=== PATIENT | male | born 1965 | race Hispanic/Latino ===

== ENCOUNTER 2019-04-13 10:20 | Emergency (ER) | payer SELFPAY ==
[~2019-04-13] VITALS: Ht 170.2 cm; Wt 65.0 kg
[~2019-04-13 10:20] MED LIST: NAPROSYN500 MG PO; NO MEDS
[2019-04-13 10:41] LABS: HEMATOCRIT 41.5 % (39.0-50.0); HEMOGLOBIN 13.7 g/dl (14.0-18.0); IMMATURE GRANULOCYTES 0.7 % (0.0-5.0); MEAN CELL VOLUME 87.2 fL CALC (80.0-100.0); MEAN CORPUSCULAR HGB 28.8 pG CALC (26.0-32.0); NEUT# 9.29 thou/uL (1.82-7.42); RED BLOOD COUNT 4.76 mill/uL (4.70-6.10); RED CELL DISTRI WIDTH 12.5 % (11.5-15.5)
[2019-04-13 10:59] LABS: ANION GAP 14 (6-22 (CALC)); BUN 15 mg/dL (9-20); BUN/CREATININE RATIO 19 (12-20 (CALC)); CARBON DIOXIDE 25 mmol/l (22-30); CHLORIDE 104 mmol/l (95-108); CREATININE 0.8 mg/dL (0.7-1.3); GFR > 60 ML/MIN (>=60 (CALC)); GFR FOR AFR.AMER. > 60 ML/MIN (>=60 (CALC)); POTASSIUM 4.8 mmol/l (3.5-5.1); SODIUM 138 mmol/l (137-146)
[2019-04-13 12:09] VITALS: BP 150/87
== END 2019-04-13 12:09 | disposition short-term general hospital (02) | DRG 311 ==
LOC: ED 10:20
PROVIDERS: Family Medicine
DX: I20.0 Unstable angina (principal); I30.9 Acute pericarditis, unspecified; I10 Essential (primary) hypertension; E11.9 Type 2 diabetes mellitus without complications; I25.2 Old myocardial infarction; F17.200 Nicotine dependence, unspecified, uncomplicated
CPT/HCPCS: J1644

== ENCOUNTER 2019-11-13 | Emergency (ER) | payer SELFPAY ==
[2019-11-13] MEDS ORDERED: PLAVIX75 MG PO (14:51)
[2019-11-13 15:00] LABS: HEMATOCRIT 41.1 % (39.0-50.0); HEMOGLOBIN 13.5 g/dl (14.0-18.0); IMMATURE GRANULOCYTES 0.4 % (0.0-5.0); MEAN CELL VOLUME 88.6 fL CALC (80.0-100.0); MEAN CORPUSCULAR HGB 29.1 pG CALC (26.0-32.0); MEAN CORPUSCULAR HGB CONC 32.8 g/L CALC (32.0-36.0); NEUT# 6.73 thou/uL (1.82-7.42); RED BLOOD COUNT 4.64 mill/uL (4.70-6.10); RED CELL DISTRI WIDTH 13.2 % (11.5-15.5)
[2019-11-13 15:14] LABS: ANION GAP 10 (6-22 (CALC)); BUN 19 mg/dL (9-20); BUN/CREATININE RATIO 19 (12-20 (CALC)); CARBON DIOXIDE 29 mmol/l (22-30); CHLORIDE 104 mmol/l (95-108); GFR > 60 ML/MIN (>=60 (CALC)); GFR FOR AFR.AMER. > 60 ML/MIN (>=60 (CALC)); POTASSIUM 4.7 mmol/l (3.5-5.1); SODIUM 140 mmol/l (137-146)
[2019-11-13] MEDS ORDERED: NOVOLIN 70/30 SC (15:25)
[2019-11-13 16:16] LABS: INTERNATIONAL NORMALIZED RATIO 0.9 RATIO (0.7-1.3); PROTHROMBIN TIME 9.6 SECONDS (9.0-12.5)
== END 2019-11-13 19:04 | disposition short-term general hospital (02) | DRG 311 ==
PROVIDERS: Family Medicine
DX: I20.0 Unstable angina (principal); E11.9 Type 2 diabetes mellitus without complications; I10 Essential (primary) hypertension; I25.2 Old myocardial infarction; F17.200 Nicotine dependence, unspecified, uncomplicated; Z95.1 Presence of aortocoronary bypass graft
CPT/HCPCS: J1644

== ENCOUNTER 2019-11-13 12:57 | Emergency (ER) | payer SELFPAY ==
[2019-11-13 13:07] VITALS: BP 151/77
[2019-11-13] MEDS ORDERED: PLAVIX75 MG PO (14:51)
[2019-11-13] MEDS ORDERED: NOVOLIN 70/30 SC (15:25)
== END 2019-11-13 13:23 | disposition left against medical advice (07) | DRG 951 ==
LOC: ED 12:57 → LWOBS 13:22
DX: Z91.19 Patient's noncompliance with other medical treatment and regimen (principal)

== ENCOUNTER 2023-04-15 05:58 | Emergency (ER) | payer SELFPAY ==
[~2023-04-15] VITALS: Ht 170.2 cm; Wt 91.0 kg
[~2023-04-15 05:58] MED LIST changes: +NOVOLIN 70/30 SC; +PLAVIX75 MG PO
[2023-04-15 06:43] LABS: BASO% 0.5 % (0-3); EOS% 4.4 % (0-8); IMMATURE GRANULOCYTES 0.6 % (0.0-5.0); LYMPH% 25.8 % (15-41); MEAN CELL VOLUME 91.1 fL CALC (80.0-100.0); MEAN CORPUSCULAR HGB 29.6 pG CALC (26.0-32.0); MEAN CORPUSCULAR HGB CONC 32.6 g/dL CAL (32.0-36.0); MONO% 7.5 % (2-13); NEUT# 7.85 thou/uL (1.82-7.42); NEUT% 61.2 % (42-76); RED BLOOD COUNT 5.7 mill/uL (4.70-6.10); RED CELL DISTRI WIDTH 12.7 % (11.5-15.5)
[2023-04-15 06:48] LABS: HEMATOCRIT 51.9 % (39.0-50.0); HEMOGLOBIN 16.9 g/dl (14.0-18.0)
[2023-04-15 06:55] LABS: ALBUMIN 3.4 g/dL (3.2-5.0); ALKALINE PHOSPHATASE 107 u/l (38-126); ANION GAP 10 (6-22 (CALC)); BILIRUBIN, TOTAL 0.7 mg/dL (0.2-1.3); BUN 19 mg/dL (9-20); BUN/CREATININE RATIO 21 (12-20 (CALC)); CARBON DIOXIDE 25 mmol/l (22-30); CHLORIDE 104 mmol/l (95-108); CREATININE 0.9 mg/dL (0.7-1.3); GFR FOR AFR.AMER. > 60 ML/MIN (>=60 (CALC)); GFR OTHER RACES > 60 ML/MIN (>=60 (CALC)); LIPASE 70 u/l (23-300); POTASSIUM 4.2 mmol/l (3.5-5.1); SGOT/AST 33 u/l (17-59); SODIUM 135 mmol/l (137-146); TOTAL PROTEIN 6.4 g/dL (6.3-8.2)
[2023-04-15 07:00] VITALS: BP 127/77
[2023-04-15 07:31] LABS: URINE BILIRUBIN - DIPSTICK NEGATIVE (NEGATIVE); URINE BLOOD DIPSTICK TRACE-INTACT (NEGATIVE); URINE COLOR YELLOW; URINE GLUCOSE - DIPSTICK NEGATIVE (NEGATIVE); URINE KETONE NEGATIVE (NEGATIVE); URINE LEUK ESTERASE NEGATIVE (NEGATIVE); URINE PH 5.5 (4.5-8.0); URINE PROTEIN - DIPSTICK >=300 mg/dL (NEG-TRACE); URINE SPECIFIC GRAVITY >=1.030; URINE UROBILINOGEN - DIPSTICK 0.2 E.U./dL (0.2)
[2023-04-15 07:32] LABS: URINE NITRITE - DIPSTICK NEGATIVE (Negative)
[2023-04-15 07:38] LABS: URINE RBC 0-2 RBC/hpf (0-5)
[2023-04-15 07:39] LABS: URINE SQUAMOUS EPITHELIAL CELL RARE EPI/hpf (0-FEW)
[2023-04-15 09:39] VITALS: BP 146/98
[2023-04-15] MEDS ORDERED: OMNI-PAC300 MG PO (09:45)
[2023-04-15 10:03] VITALS: BP 146/98
== END 2023-04-15 10:00 | disposition home or self-care (01) | DRG 392 ==
LOC: ED 05:58
PROVIDERS: Family Medicine
DX: R10.31 Right lower quadrant pain (principal); R91.1 Solitary pulmonary nodule; K40.20 Bilateral inguinal hernia, without obstruction or gangrene, not specified as recurrent; I10 Essential (primary) hypertension; E11.9 Type 2 diabetes mellitus without complications; I25.2 Old myocardial infarction; F17.210 Nicotine dependence, cigarettes, uncomplicated; Z95.1 Presence of aortocoronary bypass graft
CPT/HCPCS: Q9967

== ENCOUNTER 2024-05-20 16:41 | Emergency (ER) | payer SELFPAY ==
[~2024-05-20] VITALS: Ht 170.2 cm; Wt 81.0 kg
[~2024-05-20 16:41] MED LIST changes: +OMNI-PAC300 MG PO
[2024-05-20 16:50] VITALS: BP 155/90
[2024-05-20] MEDS ORDERED: oxyCODONE 5MG/ ACETAMINOPHEN 325MG TAB PO ONE (16:55)
[2024-05-20 17:00] VITALS: BP 133/82
[2024-05-20 17:25] LABS: BASO% 0.2 % (0-3); EOS% 2.7 % (0-8); HEMATOCRIT 53.7 % (39.0-50.0); HEMOGLOBIN 17.6 g/dl (14.0-18.0); IMMATURE GRANULOCYTES 0.2 % (0.0-5.0); LYMPH% 35.8 % (15-41); MEAN CELL VOLUME 89.2 fL CALC (80.0-100.0); MEAN CORPUSCULAR HGB 29.2 pG CALC (26.0-32.0); MEAN CORPUSCULAR HGB CONC 32.8 g/dL CAL (32.0-36.0); MONO% 7.8 % (2-13); NEUT# 4.96 thou/uL (1.82-7.42); NEUT% 53.3 % (42-76); RED BLOOD COUNT 6.02 mill/uL (4.70-6.10); RED CELL DISTRI WIDTH 12.1 % (11.5-15.5)
[2024-05-20 17:45] LABS: ALBUMIN 3.8 g/dL (3.2-5.0); BILIRUBIN, TOTAL 0.6 mg/dL (0.2-1.3); POTASSIUM 4.3 mmol/l (3.5-5.1); TOTAL PROTEIN 6.8 g/dL (6.3-8.2)
[2024-05-20 18:45] VITALS: BP 133/82
== END 2024-05-20 18:48 | disposition home or self-care (01) | DRG 605 ==
LOC: ED 16:41
PROVIDERS: Nurse Practitioner Family
DX: S00.33XA Contusion of nose, initial encounter (principal); I10 Essential (primary) hypertension; E11.9 Type 2 diabetes mellitus without complications; I25.2 Old myocardial infarction; F17.200 Nicotine dependence, unspecified, uncomplicated; Y08.89XA Assault by other specified means, initial encounter; Y92.481 Parking lot as the place of occurrence of the external cause; Z95.1 Presence of aortocoronary bypass graft; Z79.02 Long term (current) use of antithrombotics/antiplatelets